=== PATIENT | male | born 1990 | race African-American/Black ===

== ENCOUNTER 2017-08-13 05:58 | Emergency (ER) | payer OTHER ==
[2017-08-13 06:00] VITALS: BP 132/78; PULSE 100; RESP 16; TEMP 99.4; O2SAT 95
--- NOTE | 2017-08-13 06:27 | PD ---
HPI Chief Complaint: Cold / Flu Symptoms Time Seen by Provider: 06:21 Travel History International Travel<30 days: No Contact w/Intl Traveler<30days: No Traveled to known affect area: No History of Present Illness HPI Patient is a 27-year-old male presents emergency department for evaluation of cough and congestion. He states she just not feeling right. Denies a history of immunocompromise denies any history of fever. Denies any productive cough. States his been feeling lousy for the past 3 days. Denies any sick contacts or foreign travel. States symptoms been rapidly worsening. [facility] Past Medical History Medical History: Denies Significant Hx ?: Not Past Surgical History Surgical History: No Previous Surgery Social History Alcohol Use: Yes Tobacco Use: Yes (BLACK AND MILD) Substance Use: No Allergies-Medications (Allergen,Severity, Reaction): Coded Allergies: No Known Allergies (Unverified , 08/13/17) Reported Meds & Prescriptions Reported Meds & Active Scripts Active Azithromycin 250 Mg Tab 250 Mg PO DAILY 5 Days Review of Systems Except as stated in HPI: all other systems reviewed are Neg Physical Exam Narrative GENERAL: Well-developed well-nourished, no obvious distress. SKIN: Focused skin assessment warm/dry. HEAD: Atraumatic. Normocephalic. EYES: Pupils equal and round. No scleral icterus. No injection or drainage. ENT: No nasal bleeding or discharge. Mucous membranes pink and moist. NECK: Trachea midline. No JVD. CARDIOVASCULAR: Regular rate and rhythm. No murmur appreciated. RESPIRATORY: No accessory muscle use. Slight wheeze on the right.. Equal air entry which is adequate bilaterally. GASTROINTESTINAL: Abdomen soft, non-tender, nondistended. Hepatic and splenic margins not palpable. MUSCULOSKELETAL: No obvious deformities. No clubbing. No cyanosis. No edema. NEUROLOGICAL: Awake and alert. No obvious cranial nerve deficits. Motor grossly within normal limits. Normal speech. PSYCHIATRIC: Appropriate mood and affect; insight and judgment normal. Data Data Last Documented VS Vital Signs Date Time Temp Pulse Resp B/P (MAP) Pulse Ox O2 Delivery O2 Flow Rate FiO2 08/13/17 08:51 93 16 112/68 (83) 99 Room Air 08/13/17 06:00 99.4 Orders Orders Chest, Pa & Lat (08/13/17 ) Benzonatate (Tessalon) (08/13/17 06:30) Complete Blood Count With Diff (08/13/17 07:15) Basic Metabolic Panel (Bmp) (08/13/17 07:15) Lactic Acid Sepsis Protocol (08/13/17 07:15) Blood Culture (08/13/17 07:15) Ceftriaxone Inj (Rocephin Inj) (08/13/17 07:15) Azithromycin (Zithromax) (08/13/17 07:15) Sodium Chlor 0.9% 1000 Ml Inj (Ns 1000 M (08/13/17 08:00) Labs Laboratory Tests Test 08/13/17 07:28 White Blood Count 22.6 TH/MM3 Red Blood Count 5.15 MIL/MM3 Hemoglobin 14.4 GM/DL Hematocrit 42.9 % Mean Corpuscular Volume 83.2 FL Mean Corpuscular Hemoglobin 27.9 PG Mean Corpuscular Hemoglobin Concent 33.5 % Red Cell Distribution Width 15.3 % Platelet Count 272 TH/MM3 Mean Platelet Volume 8.0 FL Neutrophils (%) (Auto) 76.2 % Lymphocytes (%) (Auto) 12.1 % Monocytes (%) (Auto) 10.4 % Eosinophils (%) (Auto) 1.0 % Basophils (%) (Auto) 0.3 % Neutrophils # (Auto) 17.2 TH/MM3 Lymphocytes # (Auto) 2.7 TH/MM3 Monocytes # (Auto) 2.3 TH/MM3 Eosinophils # (Auto) 0.2 TH/MM3 Basophils # (Auto) 0.1 TH/MM3 CBC Comment AUTO DIFF Differential Comment AUTO DIFF CONFIRMED Blood Urea Nitrogen 11 MG/DL Creatinine 1.02 MG/DL Random Glucose 108 MG/DL Calcium Level 9.1 MG/DL Sodium Level 136 MEQ/L Potassium Level 4.8 MEQ/L Chloride Level 103 MEQ/L Carbon Dioxide Level 26.6 MEQ/L Anion Gap 6 MEQ/L Estimat Glomerular Filtration Rate 105 ML/MIN Lactic Acid Level 1.5 mmol/L MDM Medical Decision Making Medical Screen Exam Complete: Yes Emergency Medical Condition: Yes Differential Diagnosis Pneumonia, flu, URI. Narrative Course Patient roomed emergency department, chest x-ray was obtained which does show developing pneumonia. The patient was discussed with Dr. Machuca and we have ordered basic labs to risk stratify him for inpatient versus outpatient therapy. She will follow-up the labs and disposition the patient properly. Diagnosis Primary Impression: Pneumonia Qualified Codes: J18.1 - Lobar pneumonia, unspecified organism Scripts Azithromycin (Azithromycin) 250 Mg Tab 250 MG PO DAILY for Infection for 5 Days, #5 TAB 0 Refills Prov: Wendy Machuca 08/13/17 Condition: Stable Brijesh Knight MD Aug 13, 2017 06:27
[2017-08-13] MEDS ORDERED: BENZONATATE 100 MG CAP PO ONE (06:30)
--- NOTE | 2017-08-13 06:57 | RADRPT ---
EXAM DATE/TIME: 08/13/2017 06:36 [place] COMPARISON: No previous studies available for comparison. INDICATIONS : Cough. MEDICAL HISTORY : None. SURGICAL HISTORY : None. ENCOUNTER: Initial ACUITY: 3 days PAIN SCORE: 7/10 LOCATION: Left upper chest FINDINGS: PA and lateral views of the chest demonstrate the lungs to be symmetrically aerated is opacification posteriorly in the right base concerning for an acute infiltrate. Left lung is clear. Heart size is n ormal. Mild dextroscoliosis of the dorsal spine. Osseous structures are otherwise intact CONCLUSION: Dense posterior right basilar infiltrate Poncho Johnson MD on August 13, 2017 at 6:48 Board Certified Radiologist. This report was verified electronically.
[2017-08-13] MEDS ORDERED: cefTRIAXone INJ 1,000 MG in SODIUM CHLORIDE 0.9% INJ 100 ML IV ONE (07:15)
[2017-08-13] MEDS ORDERED: AZITHROMYCIN 250 MG TAB PO ONE (07:15)
--- NOTE | 2017-08-13 07:22 | PD ---
Physical Exam Narrative Received sign out from previous team to follow up with labs and reevaluate. 27yo M with no significant PMH presents to the ED with c/o cough and nasal congestion. CXR showed right dense posterior infiltrate. Pt denies any sob or chest pain or fever. Pt given ceftriaxone and azithromycin to cover community acquired pneumonia. Denies any recent hospitalization or travel. Pt also given NS IVF. Pt is speaking in complete sentences without tachypnea. Labs reviewed, leukocytosis at 22.6. Lactic acid normal at 1.5. BMP unremarkable. Pt is well appearing and saturating at 100% on RA and HR is 89bpm. Will discharge with antibiotics and return precautions given. Data Data Last Documented VS Vital Signs Date Time Temp Pulse Resp B/P (MAP) Pulse Ox O2 Delivery O2 Flow Rate FiO2 08/13/17 08:51 93 16 112/68 (83) 99 Room Air 08/13/17 06:00 99.4 Orders Orders Chest, Pa & Lat (08/13/17 ) Benzonatate (Tessalon) (08/13/17 06:30) Complete Blood Count With Diff (08/13/17 07:15) Basic Metabolic Panel (Bmp) (08/13/17 07:15) Lactic Acid Sepsis Protocol (08/13/17 07:15) Blood Culture (08/13/17 07:15) Ceftriaxone Inj (Rocephin Inj) (08/13/17 07:15) Azithromycin (Zithromax) (08/13/17 07:15) Sodium Chlor 0.9% 1000 Ml Inj (Ns 1000 M (08/13/17 08:00) Labs Laboratory Tests Test 08/13/17 07:28 White Blood Count 22.6 TH/MM3 Red Blood Count 5.15 MIL/MM3 Hemoglobin 14.4 GM/DL Hematocrit 42.9 % Mean Corpuscular Volume 83.2 FL Mean Corpuscular Hemoglobin 27.9 PG Mean Corpuscular Hemoglobin Concent 33.5 % Red Cell Distribution Width 15.3 % Platelet Count 272 TH/MM3 Mean Platelet Volume 8.0 FL Neutrophils (%) (Auto) 76.2 % Lymphocytes (%) (Auto) 12.1 % Monocytes (%) (Auto) 10.4 % Eosinophils (%) (Auto) 1.0 % Basophils (%) (Auto) 0.3 % Neutrophils # (Auto) 17.2 TH/MM3 Lymphocytes # (Auto) 2.7 TH/MM3 Monocytes # (Auto) 2.3 TH/MM3 Eosinophils # (Auto) 0.2 TH/MM3 Basophils # (Auto) 0.1 TH/MM3 CBC Comment AUTO DIFF Differential Comment AUTO DIFF CONFIRMED Blood Urea Nitrogen 11 MG/DL Creatinine 1.02 MG/DL Random Glucose 108 MG/DL Calcium Level 9.1 MG/DL Sodium Level 136 MEQ/L Potassium Level 4.8 MEQ/L Chloride Level 103 MEQ/L Carbon Dioxide Level 26.6 MEQ/L Anion Gap 6 MEQ/L Estimat Glomerular Filtration Rate 105 ML/MIN Lactic Acid Level 1.5 mmol/L MDM Supervised Visit with KIRILL: No Diagnosis Primary Impression: Pneumonia Qualified Codes: J18.1 - Lobar pneumonia, unspecified organism Patient Instructions: General Instructions Departure Forms: Tests/Procedures Additional Instruction: You have already been given antibiotics today, please start taking the prescribed antibiotics tomorrow. Please follow up with [facility] in 2-3 days. Return to the ED if symptoms. Med/Other Pt SpecificInfo: Prescription(s) given Scripts Azithromycin (Azithromycin) 250 Mg Tab 250 MG PO DAILY for Infection for 5 Days, #5 TAB 0 Refills Prov: Wendy Machuca DO 08/13/17 Disposition: 01 DISCHARGE HOME Condition: Stable Wendy Machuca DO Aug 13, 2017 07:22
[2017-08-13 07:50] LABS: AUTOMATED NEUTROPHIL # 17.2 TH/MM3 (1.8-7.7); BASOPHIL # 0.1 TH/MM3 (0-0.2); BASOPHIL % 0.3 % (0.0-2.0); EOSINOPHIL # 0.2 TH/MM3 (0-0.4); HEMATOCRIT 42.9 % (39.0-51.0); LYMPH % 12.1 % (9.0-44.0); LYMPHOCYTE # 2.7 TH/MM3 (1.0-4.8); MEAN CELL VOLUME 83.2 FL (80.0-100.0); MEAN CORPUSCULAR HEMOGLOBIN 27.9 PG (27.0-34.0); MEAN CORPUSCULAR HGB CONC 33.5 % (32.0-36.0); MONO % 10.4 % (0.0-8.0); NEUT % 76.2 % (16.0-70.0); PLATELET COUNT 272 TH/MM3 (150-450); RED BLOOD COUNT 5.15 MIL/MM3 (4.50-5.90); RED CELL DISTRIBUTION WIDTH 15.3 % (11.6-17.2); WHITE BLOOD COUNT 22.6 TH/MM3 (4.0-11.0)
[2017-08-13 07:51] LABS: HEMO FLAGS AUTO DIFF
[2017-08-13] MEDS ORDERED: SODIUM CHLOR 0.9% 1000 ML INJ 1,000 ML IV ONE (08:00)
[2017-08-13 08:19] LABS: SCAN/DIFF AUTO DIFF CONFIRMED
[2017-08-13 08:20] LABS: BICARBONATE 26.6 MEQ/L (21.0-32.0); POTASSIUM 4.8 MEQ/L (3.5-5.1)
[2017-08-13 08:51] VITALS: BP 112/68; PULSE 93; RESP 16; O2SAT 99
[2017-08-13] MEDS ORDERED: AZIT250T3 PO (08:54)
== END 2017-08-13 09:54 | disposition home or self-care (01) ==
LOC: NEPE 05:58
DX: J18.9 Pneumonia, unspecified organism (principal); D72.829 Elevated white blood cell count, unspecified; Z72.0 Tobacco use
CPT/HCPCS: 71020; 80048; 83605; 85025; 87040; 96365; 99284; J0696; J7030

== ENCOUNTER 2018-10-05 15:32 | Observation (INO) ==
[2018-10-05 16:54] LABS: Bilirubin,Urine Negative (Negative); Calcium Oxalate Crystals,Urine Rare /hpf; Clarity,Urine Hazy (Clear); Color,Urine Yellow (Yellw/Straw); Glucose,Urine (UA) Negative (Negative); Leukocyte Esterase,Urine Moderate (Negative); Mucus,Urine Few /lpf (Occasional); Nitrite,Urine Negative (Negative); Specific Gravity,Urine 1.019 (1.002-1.035)
--- NOTE | 2018-10-05 17:07 | ED ---
HPI General Chief complaint: Urogenital-Male Stated complaint: Pain Time Seen by Provider: 10/05/18 16:17 Source: patient Mode of arrival: ambulatory Limitations: no limitations History of Present Illness HPI narrative: 88-year-old male presents the emergency room for evaluation of penile pain, swelling that started yesterday morning. Patient states he retracted his foreskin to urinate and it never went back. States it has progressively become more painful and swollen since then. He does have some penile discharge that is clear and/or yellow in color. States he had unprotected sex about 4 months ago. He denies testicular pain, abdominal pain, fever, chills, nausea, vomiting, urgency, or frequency. No flank pain. No chronic medical conditions or daily medications. Onset (ago): day(s) Location: genitals Radiation: non-radiation Severity: severe Quality: burning, aching and other (throbbing) Pain Consistency: constant Relieving factors: none Exacerbating factors: movement Treatments prior to arrival: Reports none Related Data Home Medications Medication Instructions Recorded Confirmed No Known Home Medications 10/05/18 10/05/18 Allergies Allergy/AdvReac Type Severity Reaction Status Date / Time shellfish derived Allergy Anaphylaxis Verified 10/05/18 16:48 Sulfa (Sulfonamide Allergy Swelling Verified 10/05/18 16:47 Antibiotics) Review of Systems ROS: all other systems reviewed are negative [facility] Medical History Medical History Patient denies medical problems (Acute) Surgical History Surgical History No history of previous surgery (Acute) Family History Family History Other Family history non-contributory Social History Social History Substance History: No History of Abuse Second Hand Smoke Exposure: Yes Smoking Status: Heavy tobacco smoker Tobacco Type: Cigarettes How Often Do You Have a Drink Containing Alcohol: 4 or more times a week Recent Travel in [facility] within the Last 8 Weeks: No Recent Out of Country Travel within the Last 8 Weeks: No Substance Abuse Detail Marijuana: Substance Use Status: Active Route Used Substance Abuse: Inhalation Reason for Use: Get High Immunization History Tetanus Immunization: Unsure Exam Narrative Exam Narrative: GENERAL: Well-nourished, well-developed in no acute distress. Afebrile. Ambulatory. SKIN: Focused skin assessment warm/dry. HEAD: Normocephalic. EYES: No scleral icterus. No injection or drainage. NECK: Supple, trachea midline. No JVD or lymphadenopathy. CARDIOVASCULAR: Regular rate and rhythm without murmurs, gallops, or rubs. RESPIRATORY: Breath sounds equal bilaterally. No accessory muscle use. GASTROINTESTINAL: Abdomen soft, non-tender, nondistended. GENITOURINARY: Uncircumcised. No lesions. There is moderate thick, yellow drainage around the glans penis. The glans penis is protruding and extremely swollen outside of the foreskin. It is extremely tender to palpation. There is well-perfused and pink. Non-dusky appearing. Procedures Procedural Sedation Presedation Evaluation: Paraphimosis ASA Class: ASA 1 Normal Healthy Patient Preparation: dietary clerk applied, pulse oximeter, suction/airway equipment at bedside and IV secured IV Propofol Dose (mgs): 80 Course Initial Documented Vital Signs Temperature 98.3 F 10/05/18 15:40 Pulse Rate 92 H 10/05/18 15:40 Respiratory Rate 18 10/05/18 15:40 Blood Pressure 140/93 H 10/05/18 15:40 Pulse Oximetry 100 10/05/18 15:40 Last Documented Vital Signs Temperature 98.2 F 10/06/18 13:55 Pulse Rate 66 10/06/18 13:55 Respiratory Rate 17 10/06/18 13:55 Blood Pressure 121/76 10/06/18 13:55 Pulse Oximetry 99 10/06/18 13:55 Sign Out Sign Out Data: Patient Sign Out occurred on 10/05/18 at 18:03. Patient's care was discussed, and care was transferred from Brijesh Knight MD to Wendy Machuca DO. Sign Out Comment: . Last updated by Brijesh Knight MD at 10/05/18 17:43 Post-Handoff Eval: Received sign out at 5pm that pt will require procedural sedation and an attempt to retract the foreskin. Pt said he retracted his foreskin yesterday morning to urinate and has not been able to pull the foreskin back. He has no PMH. Pt is able to urinate normally. Consent was obtained and pt was placed on dietary clerk and 80mg of propofol was used for sedation. The glans are very edematous and I was not able to retract the foreskin. Glans penis are pink in color. I discussed with urologist engagement quality consultant Dr. Gaona so recommended NPO after midnight and he will take patient to the OR tomorrow. Pt given morphine for pain. Labs reviewed, WBC 11.5. H/H 12.3/36.8. CMP unremarkable. UA showed WBC 121. Pt is having yellow and clear penile discharge. Will cover for STI. Pt given ceftriaxone 1gm with lidocaine IM and azithromycin. Discussed with Dr. Robins and accepted to his service. Medical Decision Making KIRILL Attestation KIRILL supervised visit: Yes Attestation: I, Dr. Knight, have reviewed the advance practice practitioner's documentation and am in agreement, met with the patient face to face, made the diagnosis, and the medical decision making was done by me. *My assessment and Findings: Patient seen and examined by me in addition to Orin Humphries PA-C, this 28-year-old male presented by EMS for evaluation of dysuria. On examination by Orin patient was found to have paraphimosis, she approached me and I examined the patient and indeed he does have paraphimosis, fairly tender in the patient will not allow for examination, also not allow for penile block. The glans is pink and has signs of adequate perfusion and I do not think there is any ischemia to the glands currently. I think the only safe way to proceed is with conscious sedation which may not be effective and the patient may need dorsal slit procedure neurology may need to. This the patient was discussed with Dr. Orin Machuca at 1700 shift change and will assume care for the patient. MDM Narrative Medical decision making narrative: 28-year-old male presents the emergency room for evaluation of painful penis that started yesterday morning. Patient states he pulled his foreskin back to urinate and it never retracted. States symptoms have been progressively worsening. Since then he has had increasing swelling, tenderness to the glans penis, and pain with urination. On exam, patient has significant edema to the glans penis resulting in a paraphimosis. There is some purulent yellow drainage. It is extremely tender to palpation. It appears well perfused. I immediately contacted my attending physician who came over and saw the patient right away. Decision was made to administer conscious sedation for attempted reduction. The reduction was not successful. Dr. Machuca called the urologist engagement quality consultant who recommends patient be admitted for surgical correction tomorrow. Patient will be nothing by mouth after midnight. Dr. Machuca spoke to Dr. Robins who agrees to admission. Patient understands and agrees to plan. Medical Screen Exam Complete: Yes Emergency Medical Condition: Yes Differential Diagnosis Differential Diagnosis: Paraphimosis, phimosis, STD, UTI Lab Data Result diagrams: 10/05/18 17:28 10/05/18 17:28 Lab Results 10/05/18 10/05/18 10/05/18 Range/Units 16:21 16:21 16:21 WBC (4.0-11.0) th/mm3 RBC (4.50-5.90) mil/mm3 Hgb (13.0-17.0) gm/dL Hct (39.0-51.0) % MCV (80.0-100.0) fL MCH (27.0-34.0) pg MCHC (32.0-36.0) % RDW (11.6-17.2) % Plt Count (150-450) th/mm3 MPV (7.0-11.0) fL Prelim Diff (Auto) Neut % (Auto) (16.0-70.0) % Lymph % (Auto) (9.0-44.0) % Bullock % (Auto) (0.0-8.0) % Eos % (Auto) (0.0-4.0) % Baso % (Auto) (0.0-2.0) % Neut # (Auto) (1.8-7.7) th/mm3 Lymph # (Auto) (1.0-4.8) th/mm3 Bullock # (Auto) (0.0-0.9) th/mm3 Eos # (Auto) (0.0-0.4) th/mm3 Baso # (Auto) (0.0-0.2) th/mm3 WBC Differential Diff Scan Differential Comment PT (9.8-11.6) sec INR Ratio APTT (23.4-31.7) sec Sodium (136-145) meq/L Potassium (3.5-5.1) meq/L Chloride (98-107) meq/L Carbon Dioxide (21.0-32.0) meq/L Anion Gap (5-15) meq/L BUN (7-18) mg/dL Creatinine (0.60-1.30) mg/dL Estimated GFR (>89) mL/min Random Glucose (74-106) mg/dL Calcium (8.5-10.1) mg/dL Total Bilirubin (0.2-1.0) mg/dL AST (15-37) U/L ALT (12-78) U/L Alkaline Phosphatase (45-117) U/L Total Protein (6.4-8.2) g/dL Albumin (3.4-5.0) g/dL Urine Color Yellow (Yellw/Straw) Urine Clarity Hazy H (Clear) Urine pH 6.0 (5.0-8.5) Ur Specific Foss 1.019 (1.002-1.035) Urine Protein Negative (Neg-Trace) mg/dL Urine Glucose (UA) Negative (Negative) mg/dL Urine Ketones Negative (Negative) mg/dL Urine Occult Blood Negative (Negative) Urine Nitrate Negative (Negative) Urine Bilirubin Negative (Negative) Urine Urobilinogen 2.0 H (Less than 2) mg/dL Ur Leukocyte Esterase Moderate H (Negative) Urine RBC 1 (0-3) /hpf Urine WBC 121 H (0-5) /hpf Calcium Oxalate Crystal Rare H (None) /hpf Urine Mucus Few H (Occasional) /lpf Micro UA Comment Culture indicated Ur Microscopic Review Not Reportable Urine Culture Comments Culture indicated Urine Opiates Screen Neg (Neg) Ur Barbiturates Screen Neg (Neg) Ur Amphetamines Screen Neg (Neg) U Benzodiazepines Scrn Neg (Neg) Urine Cocaine Screen Neg (Neg) U Cannabinoids Screen Pos H (Neg) Chlam trachomat DNA PCR Not detected (Not Detect) N.gonorrhoeae DNA (PCR) Detected A (Not Detect) 10/05/18 10/05/18 10/05/18 Range/Units 17:28 17:28 17:28 WBC 11.5 H (4.0-11.0) th/mm3 RBC 4.32 L (4.50-5.90) mil/mm3 Hgb 12.3 L (13.0-17.0) gm/dL Hct 36.8 L (39.0-51.0) % MCV 85.3 (80.0-100.0) fL MCH 28.4 (27.0-34.0) pg MCHC 33.3 (32.0-36.0) % RDW 14.7 (11.6-17.2) % Plt Count 367 (150-450) th/mm3 MPV 7.0 (7.0-11.0) fL Prelim Diff (Auto) Slide review pending Neut % (Auto) 75.9 H (16.0-70.0) % Lymph % (Auto) 13.1 (9.0-44.0) % Bullock % (Auto) 8.7 H (0.0-8.0) % Eos % (Auto) 0.9 (0.0-4.0) % Baso % (Auto) 1.4 (0.0-2.0) % Neut # (Auto) 8.7 H (1.8-7.7) th/mm3 Lymph # (Auto) 1.5 (1.0-4.8) th/mm3 Bullock # (Auto) 1.0 H (0.0-0.9) th/mm3 Eos # (Auto) 0.1 (0.0-0.4) th/mm3 Baso # (Auto) 0.2 (0.0-0.2) th/mm3 WBC Differential . Diff Scan Auto diff confirmed Differential Comment . PT 10.5 (9.8-11.6) sec INR 1.0 Ratio APTT 35.3 H (23.4-31.7) sec Sodium 139 (136-145) meq/L Potassium 3.8 (3.5-5.1) meq/L Chloride 103 (98-107) meq/L Carbon Dioxide 28.8 (21.0-32.0) meq/L Anion Gap 7 (5-15) meq/L BUN 7 (7-18) mg/dL Creatinine 0.91 (0.60-1.30) mg/dL Estimated GFR Greater than 89 (>89) mL/min Random Glucose 80 (74-106) mg/dL Calcium 8.7 (8.5-10.1) mg/dL Total Bilirubin 0.4 (0.2-1.0) mg/dL AST 12 L (15-37) U/L ALT 17 (12-78) U/L Alkaline Phosphatase 141 H (45-117) U/L Total Protein 8.3 H (6.4-8.2) g/dL Albumin 3.7 (3.4-5.0) g/dL Urine Color (Yellw/Straw) Urine Clarity (Clear) Urine pH (5.0-8.5) Ur Specific Foss (1.002-1.035) Urine Protein (Neg-Trace) mg/dL Urine Glucose (UA) (Negative) mg/dL Urine Ketones (Negative) mg/dL Urine Occult Blood (Negative) Urine Nitrate (Negative) Urine Bilirubin (Negative) Urine Urobilinogen (Less than 2) mg/dL Ur Leukocyte Esterase (Negative) Urine RBC (0-3) /hpf Urine WBC (0-5) /hpf Calcium Oxalate Crystal (None) /hpf Urine Mucus (Occasional) /lpf Micro UA Comment Ur Microscopic Review Urine Culture Comments Urine Opiates Screen (Neg) Ur Barbiturates Screen (Neg) Ur Amphetamines Screen (Neg) U Benzodiazepines Scrn (Neg) Urine Cocaine Screen (Neg) U Cannabinoids Screen (Neg) Chlam trachomat DNA PCR (Not Detect) N.gonorrhoeae DNA (PCR) (Not Detect) Discharge Plan Discharge Disposition Patient Disposition: 30 Still Patient Discharge Condition Condition: Good Discharge Order Discharge Orders: Discharge Order (Routine); Ordered 10/06/18 Ordered By: Renetta Bui Discharge Details Discharge Comment: OK to discharge from PACU Diagnosis: Paraphimosis Physicians Team ED Provider: Wendy Machuca ED Midlevel Provider: Orin Humphries Primary Care Provider: Primary Care Rachel Pal Attending Provider: Yousuf Diaz Other Providers: Wade Gaona Status ED Status: Left Department Discharge Information Discharge Date/Time: 10/05/18 20:24
[2018-10-05] MEDS ORDERED: Morphine Inj 4 MG/ML Vial IV.PUSH ONE (17:29)
[2018-10-05 17:44] LABS: Baso # (Auto) 0.2 th/mm3 (0.0-0.2); Baso % (Auto) 1.4 % (0.0-2.0); Eos # (Auto) 0.1 th/mm3 (0.0-0.4); Eos % (Auto) 0.9 % (0.0-4.0); Hematocrit 36.8 % (39.0-51.0); Hemoglobin 12.3 gm/dL (13.0-17.0); Lymph # (Auto) 1.5 th/mm3 (1.0-4.8); Lymph % (Auto) 13.1 % (9.0-44.0); Mean Corpuscular HGB Conc 33.3 % (32.0-36.0); Mean Corpuscular Hemoglobin 28.4 pg (27.0-34.0); Mean Corpuscular Volume 85.3 fL (80.0-100.0); Mono % (Auto) 8.7 % (0.0-8.0); Neut # (Auto) 8.7 th/mm3 (1.8-7.7); Neut % (Auto) 75.9 % (16.0-70.0); Platelet Count 367 th/mm3 (150-450); Red Blood Count 4.32 mil/mm3 (4.50-5.90); Red Cell Distribution Width 14.7 % (11.6-17.2); White Blood Count 11.5 th/mm3 (4.0-11.0)
[2018-10-05 17:54] LABS: Activated Partial Thrombo Time 35.3 sec (23.4-31.7); Prothrombin Time 10.5 sec (9.8-11.6)
[2018-10-05 18:04] LABS: Albumin 3.7 g/dL (3.4-5.0); Anion Gap 7 meq/L (5-15); Aspartate Aminotransferase 12 U/L (15-37); Blood Urea Nitrogen 7 mg/dL (7-18); Calcium 8.7 mg/dL (8.5-10.1); Carbon Dioxide 28.8 meq/L (21.0-32.0); Chloride 103 meq/L (98-107); Glomerular Filtration Rate Greater Than 89 mL/min (>89); Glucose,Random 80 mg/dL (74-106); Potassium 3.8 meq/L (3.5-5.1); Sodium 139 meq/L (136-145)
[2018-10-05 18:09] LABS: Alanine Aminotransferase 17 U/L (12-78); Alkaline Phosphatase 141 U/L (45-117); Total Protein 8.3 g/dL (6.4-8.2)
[2018-10-05] MEDS ORDERED: cefTRIAXone Inj 1,000 MG Vial IM ONE (18:49)
[2018-10-05] MEDS ORDERED: Lidocaine PF 1% Inj 30 ML Vial IM ONE (18:49)
[2018-10-05] MEDS ORDERED: Azithromycin 250 MG Tablet PO ONE (18:49)
[2018-10-05] MEDS ORDERED: Bisacodyl 10 MG Supp RECTAL PRN (18:52)
[2018-10-05] MEDS ORDERED: Naloxone Inj 0.4 MG/ML Vial IV.PUSH PRN (18:53)
[2018-10-05] MEDS ORDERED: Acetaminophen 325 MG Tablet PO PRN (18:53)
[2018-10-05] MEDS ORDERED: Sodium Chloride 0.9% 2 ML Flush PRN IV.FLUSH (20:20)
--- NOTE | 2018-10-05 22:58 | P.HPIM ---
History of Present Illness Service: [facility] Primary Care Physician: No Primary Care Physician Chief Complaint: penile pain History of Present Illness: 28 y/o male with no medical history presented to the ed for evaluation of penile pain and swelling that began yesterday. Patient states he retracted his foreskin to urinate and it never went back. He states over the last day it began to get more painful and swollen. He states the pain is throbbing, 6/10, no radiation, worse with touch and associated clear/yellow drainage noted. Patient states he had unprotected sex 4 months ago. He denies any dysuria, fever, chills, abdominal pain, urinary frequency, chest pain or sob. Review of Systems ROS: all other systems reviewed are negative [facility] Medical History Medical History Patient denies medical problems (Acute) Surgical History Surgical History No history of previous surgery (Acute) Family History Family History Other Family history non-contributory Social History Social History Substance History: No History of Abuse Second Hand Smoke Exposure: Yes Smoking Status: Heavy tobacco smoker Tobacco Type: Cigarettes How Often Do You Have a Drink Containing Alcohol: 4 or more times a week Recent Travel in [facility] within the Last 8 Weeks: No Recent Out of Country Travel within the Last 8 Weeks: No Substance Abuse Detail Marijuana: Substance Use Status: Active Route Used Substance Abuse: Inhalation Reason for Use: Get High Immunization History Tetanus Immunization: Unsure Medications and Allergies Allergies Allergy/AdvReac Type Severity Reaction Status Date / Time shellfish derived Allergy Anaphylaxis Verified 10/05/18 16:48 Sulfa (Sulfonamide Allergy Swelling Verified 10/05/18 16:47 Antibiotics) Home Medications Medication Instructions Recorded Confirmed Type No Known Home Medications 10/05/18 10/05/18 History Active Medications: Active Medications Acetaminophen (Tylenol) 650 mg PO Q6HR PRN PRN Reason: PAIN SCALE 1 TO 2 Hydrocodone Bitart/Acetaminophen ([place] 7.5/325) 1 tab PO Q4H PRN PRN Reason: PAIN SCALE 6 TO 10 Last Admin: 10/05/18 21:40 Dose: 1 tab Hydrocodone Bitart/Acetaminophen ([place] 5/325) 1 tab PO Q4H PRN PRN Reason: PAIN SCALE 3 TO 5 Al Hydroxide/Mg Hydroxide (Milk Of Magnesia Liq) 30 ml PO Q12H PRN PRN Reason: Mild Constipation Bisacodyl (Dulcolax Supp) 10 mg RECTAL DAILY PRN PRN Reason: SEVERE CONSITIPATION Ceftriaxone Sodium 1,000 mg/ (Sodium Chloride) 100 mls @ 200 mls/hr IV.SIG Q24H BRODY Lactulose (Lactulose Liq) 30 ml PO DAILY PRN PRN Reason: SEVERE CONSITIPATION Naloxone HCl (Narcan Inj) 0.4 mg IV.PUSH UNSCH PRN PRN Reason: SEE LABEL COMMENTS Senna/Docusate Sodium (Erica-Colace) 1 tab PO BID BRODY Sennosides (Senokot) 17.2 mg PO Q12H PRN PRN Reason: Moderate Constipation Sodium Chloride (Ns Flush) 2 ml IV.FLUSH BID BRODY Sodium Chloride (Ns Flush) 2 ml IV.FLUSH PRN PRN PRN Reason: FLUSH AFTER USING IV ACCESS Physical Exam Vital signs: Last Vital Signs Temp 98.3 F 10/05/18 15:40 Pulse 83 10/05/18 19:15 Resp 16 10/05/18 19:15 BP 134/68 10/05/18 19:15 Pulse Ox 99 10/05/18 19:15 Intake & Output 10/03/18 10/04/18 10/05/18 10/06/18 06:59 06:59 06:59 06:59 Intake Total 100 / 100 Balance 100 / 100 Weight 70.307 kg Narrative: GENERAL: Well nourished patient laying in bed, no distress SKIN: Warm and dry. HEAD: Normocephalic. CARDIOVASCULAR: Regular rate and rhythm without murmurs, gallops, or rubs. RESPIRATORY: Breath sounds equal bilaterally. No accessory muscle use. GASTROINTESTINAL: Abdomen soft, non-tender, nondistended. MUSCULOSKELETAL: No cyanosis, or edema. : Penis is swollen, foreskin is contracted, unable to retract forward, tender , no drainage Assessment and Plan Plan 28 y/o male with no medical history presented to the ed for evaluation of penile pain and swelling that began yesterday. Paraphimosis, acute -Consult to urology for evaluation -Pain management with IV morphine and PO [place] -NPO Gonorrhea, acute -Patient treated in ED with Azithromycin and Rocephin -Discussed with patient importance of letting former partner know -Will need follow up testing outpatient DVT prophylaxis: SCDs
[2018-10-06] MEDS: Senna/Docusate Sodium 8.6/50 MG Tablet PO SCH ×3 (00:18→10:14)
[2018-10-06] MEDS: Sodium Chloride 0.9% 2 ML Flush BID IV.FLUSH SCH ×2 (00:19→10:14)
[2018-10-06 00:37] LABS: Amphetamine Screen,Urine Neg (Neg); Barbiturate Screen,Urine Neg (Neg); Cannabinoid Screen,Urine Pos (Neg); Cocaine Screen,Urine Neg (Neg)
[2018-10-06 00:39] LABS: Opiate Screen,Urine Neg (Neg)
[2018-10-06] MEDS ORDERED: Morphine Inj 4 MG/ML Vial IV.PUSH ONE ×2 (01:28→05:52)
--- NOTE | 2018-10-06 07:35 | P.CONURO ---
History of Present Illness Service: Consult date: 10/06/18 Requesting Physician: Shashank Zuñiga Reason for Consult: Paraphimosis Primary Care Provider: No Primary Care Physician Chief Complaint: penile pain History of Present Illness: 28-year-old gentleman who presented to the emergency room late yesterday with complaints of penile swelling. Apparently the patient retracted his foreskin the day prior and left it in the retracted state. He was unable to miniplate the foreskin back in normal position and thus presented to the emergency room. Attempts were made by the emergency room physician to reduce the paraphimosis without success and thus a urology consult was placed. Review of Systems All other systems reviewed negative except as stated in [facility] - History History Provided By: Patient - Medical History Medical History: Medical History (Last Reviewed 10/05/18 @ 23:33 by NORY Shirley) Patient denies medical problems - Surgical History Surgical History: Surgical History (Last Reviewed 10/05/18 @ 23:33 by NORY Shirley) No history of previous surgery - Family History Family History: Family History (Last Reviewed 10/06/18 @ 03:57 by NORY Shirley) Other Family history non-contributory - Tobacco History Second Hand Smoke Exposure: Yes Tobacco Use In Past 30 Days: Yes Smoking Status: Heavy tobacco smoker Tobacco Type: Cigarettes - Alcohol History How Often Do You Have a Drink Containing Alcohol: 4 or more times a week - Substance Use History Substance History: No History of Abuse - Substance Use Type Marijuana Status: Active Route Used: Inhalation Reason for Use: Get High - Travel History Recent Travel in the [place] Within the Last 8 Weeks: No Recent Travel Out of the Country Within the Last 8 Weeks: No - Immunization History Tetanus Immunization: Unsure Medications and Allergies Active Medications: Active Medications Acetaminophen (Tylenol) 650 mg PO Q6HR PRN PRN Reason: PAIN SCALE 1 TO 2 Hydrocodone Bitart/Acetaminophen ([place] 7.5/325) 1 tab PO Q4H PRN PRN Reason: PAIN SCALE 6 TO 10 Last Admin: 10/06/18 05:28 Dose: 1 tab Hydrocodone Bitart/Acetaminophen ([place] 5/325) 1 tab PO Q4H PRN PRN Reason: PAIN SCALE 3 TO 5 Al Hydroxide/Mg Hydroxide (Milk Of Magnesia Liq) 30 ml PO Q12H PRN PRN Reason: Mild Constipation Bisacodyl (Dulcolax Supp) 10 mg RECTAL DAILY PRN PRN Reason: SEVERE CONSITIPATION Ceftriaxone Sodium 1,000 mg/ (Sodium Chloride) 100 mls @ 200 mls/hr IV.SIG Q24H [facility] Lactulose (Lactulose Liq) 30 ml PO DAILY PRN PRN Reason: SEVERE CONSITIPATION Naloxone HCl (Narcan Inj) 0.4 mg IV.PUSH UNSCH PRN PRN Reason: SEE LABEL COMMENTS Senna/Docusate Sodium (Erica-Colace) 1 tab PO BID [facility] Last Admin: 10/06/18 00:20 Dose: Not Given Sennosides (Senokot) 17.2 mg PO Q12H PRN PRN Reason: Moderate Constipation Sodium Chloride (Ns Flush) 2 ml IV.FLUSH BID [facility] Last Admin: 10/06/18 00:19 Dose: 2 ml Sodium Chloride (Ns Flush) 2 ml IV.FLUSH PRN PRN PRN Reason: FLUSH AFTER USING IV ACCESS Allergies Allergy/AdvReac Type Severity Reaction Status Date / Time shellfish derived Allergy Anaphylaxis Verified 10/05/18 16:48 Sulfa (Sulfonamide Allergy Swelling Verified 10/05/18 16:47 Antibiotics) Home Medications Medication Instructions Recorded Confirmed Type No Known Home Medications 10/05/18 10/05/18 History Physical Exam Vital Signs - 24 hr 10/05/18 15:40 10/05/18 17:54 10/05/18 19:15 Temperature 98.3 F Pulse Rate 92 H 83 Respiratory Rate 18 20 16 Blood Pressure 140/93 H 134/68 Pulse Oximetry 100 99 10/06/18 04:00 Temperature 99.7 F H Pulse Rate 81 Respiratory Rate 18 Blood Pressure 122/73 Pulse Oximetry 97 Physical Exam: GENERAL: This is a well-nourished, well-developed patient, in no apparent distress. SKIN: No rashes, ecchymoses or lesions. Cool and dry. HEAD: Atraumatic. Normocephalic. No temporal or scalp tenderness. EYES: Pupils equal round and reactive. Extraocular motions intact. No scleral icterus. No injection or drainage. ENT: Nose without bleeding, purulent drainage or septal hematoma. Throat without erythema, tonsillar hypertrophy or exudate. Uvula midline. Airway patent. NECK: Trachea midline. No JVD or lymphadenopathy. Supple, nontender, no meningeal signs. CARDIOVASCULAR: Regular rate and rhythm without murmurs, gallops, or rubs. RESPIRATORY: Clear to auscultation. Breath sounds equal bilaterally. No wheezes , rales, or rhonchi. GASTROINTESTINAL: Abdomen soft, non-tender, nondistended. No hepato-splenomegaly , or palpable masses. No guarding. GENITOURINARY: Paraphimosis noted, glans well-perfused MUSCULOSKELETAL: Extremities without clubbing, cyanosis, or edema. No joint tenderness, effusion, or edema noted. No calf tenderness. Negative Homans sign bilaterally. NEUROLOGICAL: Awake and alert. Cranial nerves II through XII intact. Motor and sensory grossly within normal limits. Five out of 5 muscle strength in all muscle groups. Normal speech. Laboratory Results - last 24 hr 10/05/18 10/05/18 10/05/18 16:21 16:21 16:21 WBC RBC Hgb Hct MCV MCH MCHC RDW Plt Count MPV Prelim Diff (Auto) Neut % (Auto) Lymph % (Auto) [place] % (Auto) Eos % (Auto) Baso % (Auto) Neut # (Auto) Lymph # (Auto) [place] # (Auto) Eos # (Auto) Baso # (Auto) WBC Differential Diff Scan Differential Comment PT INR APTT Sodium Potassium Chloride Carbon Dioxide Anion Gap BUN Creatinine Estimated GFR Random Glucose Calcium Total Bilirubin AST ALT Alkaline Phosphatase Total Protein Albumin Urine Color Yellow Urine Clarity Hazy H Urine pH 6.0 Ur Specific [place] 1.019 Urine Protein Negative Urine Glucose (UA) Negative Urine Ketones Negative Urine Occult Blood Negative Urine Nitrate Negative Urine Bilirubin Negative Urine Urobilinogen 2.0 H Ur Leukocyte Esterase Moderate H Urine RBC 1 Urine WBC 121 H Calcium Oxalate Crystal Rare H Urine Mucus Few H Micro UA Comment Culture indicated Ur Microscopic Review Not Reportable Urine Culture Comments Culture indicated Urine Opiates Screen Neg Ur Barbiturates Screen Neg Ur Amphetamines Screen Neg U Benzodiazepines Scrn Neg Urine Cocaine Screen Neg U Cannabinoids Screen Pos H Chlam trachomat DNA PCR Not detected N.gonorrhoeae DNA (PCR) Detected A 10/05/18 10/05/18 10/05/18 17:28 17:28 17:28 WBC 11.5 H RBC 4.32 L Hgb 12.3 L Hct 36.8 L MCV 85.3 MCH 28.4 MCHC 33.3 RDW 14.7 Plt Count 367 MPV 7.0 Prelim Diff (Auto) Slide review pending Neut % (Auto) 75.9 H Lymph % (Auto) 13.1 [place] % (Auto) 8.7 H Eos % (Auto) 0.9 Baso % (Auto) 1.4 Neut # (Auto) 8.7 H Lymph # (Auto) 1.5 [place] # (Auto) 1.0 H Eos # (Auto) 0.1 Baso # (Auto) 0.2 WBC Differential . Diff Scan Auto diff confirmed Differential Comment . PT 10.5 INR 1.0 APTT 35.3 H Sodium 139 Potassium 3.8 Chloride 103 Carbon Dioxide 28.8 Anion Gap 7 BUN 7 Creatinine 0.91 Estimated GFR Greater than 89 Random Glucose 80 Calcium 8.7 Total Bilirubin 0.4 AST 12 L ALT 17 Alkaline Phosphatase 141 H Total Protein 8.3 H Albumin 3.7 Urine Color Urine Clarity Urine pH Ur Specific [place] Urine Protein Urine Glucose (UA) Urine Ketones Urine Occult Blood Urine Nitrate Urine Bilirubin Urine Urobilinogen Ur Leukocyte Esterase Urine RBC Urine WBC Calcium Oxalate Crystal Urine Mucus Micro UA Comment Ur Microscopic Review Urine Culture Comments Urine Opiates Screen Ur Barbiturates Screen Ur Amphetamines Screen U Benzodiazepines Scrn Urine Cocaine Screen U Cannabinoids Screen Chlam trachomat DNA PCR N.gonorrhoeae DNA (PCR) Result Diagrams: 10/05/18 17:28 10/05/18 17:28 Assessment and Plan - Assessment (1) Paraphimosis Code(s): N47.2 - Paraphimosis Status: Acute - Plan Urologic impression: Paraphimosis Plan: 1. Keep the patient n.p.o. 2. Bring the patient to the operating room suite this morning for reduction of paraphimosis.
[2018-10-06] MEDS ORDERED: Bupivacaine/Epinephrine PF Inj 0.5% 30 ML Vial ONE (10:44)
[2018-10-06] MEDS ORDERED: Metoprolol Tartrate 25 MG Tablet PO ONE (10:48)
[2018-10-06] MEDS ORDERED: Chlorhexidine Gluconate 2% 1 Pack (2 Cloths) TOPICAL ONE (10:48)
[2018-10-06] MEDS ORDERED: Sodium Chlor 0.9% Inj 500 ML IV.SIG ONE (11:00)
[2018-10-06] MEDS ORDERED: Lidocaine PF 1% Inj 5 ML Syringe INFILTRATN ONE (11:07)
--- NOTE | 2018-10-06 11:46 | P.OP ---
- Preoperative Diagnosis (1) Paraphimosis - Postoperative Diagnosis (1) Paraphimosis Date of procedure: 10/06/18 Procedure: Reduction of paraphimosis Anesthesia: GETA Surgeon: Wade Gaona MD Estimated blood loss (mL): 0 Pathology: none sent Operation and Findings: Indication for procedure: 28-year-old gentleman who presented to the emergency room with paraphimosis and presents now for manual reduction under anesthesia. Operative procedure in detail: Patient was brought to the operating suite and placed supine on the OR table. He was then placed under general anesthesia. He was then prepped and draped in normal sterile fashion. After an appropriate timeout was undertaken I proceeded to manually compress the edematous foreskin for approximately 60 seconds. I was then able to manually reduce the paraphimosis without difficulty. Antibiotic ointment was applied to the foreskin and distal glands. The patient was transferred to the PACU in satisfactory condition having tolerated the procedure well.
[2018-10-06] MEDS ORDERED: Flumazenil Inj 1 MG/10 ML Vial ONE (11:51)
[2018-10-06] MEDS ORDERED: fentaNYL Citrate Inj 100 MCG/2 ML Ampul ONE (12:04)
--- NOTE | 2018-10-06 12:43 | P.PN ---
Subjective Interval history: Patient is seen lying in bed. Continues to have penile pain but it is no worse than before. No nausea vomiting or diarrhea. No chief or chills. Awaiting intervention by urology. Physical Exam Vital signs: Vital Signs 10/05/18 15:40 10/05/18 17:54 10/05/18 19:15 Temperature 98.3 F Pulse Rate 92 H 83 Respiratory Rate 18 20 16 Blood Pressure 140/93 H 134/68 Pulse Oximetry 100 99 10/06/18 04:00 10/06/18 08:00 10/06/18 12:00 Temperature 99.7 F H 98.3 F 97.6 F Pulse Rate 81 59 L 73 Respiratory Rate 18 16 20 Blood Pressure 122/73 103/69 125/79 Pulse Oximetry 97 98 96 10/06/18 12:15 Temperature Pulse Rate 64 Respiratory Rate 18 Blood Pressure 135/89 Pulse Oximetry 100 Intake & Output 10/05/18 10/06/18 10/06/18 18:59 06:59 18:59 Intake Total 100 / 100 Balance 100 / 100 Weight 70.307 kg 70.307 kg Intake: IV 100 / 100 Rocephin Inj 1,000 MG In NS Inj 100 / 100 100 ML @ 200 mls/hr IV.SIG ONCE ONE Rx#:[id number] Other: # Voids 1 Date of Last Bowel Movement 10/05/18 Weight On Admission 70.307 kg Narrative: GENERAL: Well nourished patient laying in bed, no distress SKIN: Warm and dry. HEAD: Normocephalic. CARDIOVASCULAR: Regular rate and rhythm without murmurs, gallops, or rubs. RESPIRATORY: Breath sounds equal bilaterally. No accessory muscle use. GASTROINTESTINAL: Abdomen soft, non-tender, nondistended. MUSCULOSKELETAL: No cyanosis, or edema. Results - Labs CBC & Chem 7: 10/05/18 17:28 10/05/18 17:28 Laboratory Results - last 24 hr 10/05/18 10/05/18 10/05/18 16:21 16:21 16:21 WBC RBC Hgb Hct MCV MCH MCHC RDW Plt Count MPV Prelim Diff (Auto) Neut % (Auto) Lymph % (Auto) [place] % (Auto) Eos % (Auto) Baso % (Auto) Neut # (Auto) Lymph # (Auto) [place] # (Auto) Eos # (Auto) Baso # (Auto) WBC Differential Diff Scan Differential Comment PT INR APTT Sodium Potassium Chloride Carbon Dioxide Anion Gap BUN Creatinine Estimated GFR Random Glucose Calcium Total Bilirubin AST ALT Alkaline Phosphatase Total Protein Albumin Urine Color Yellow Urine Clarity Hazy H Urine pH 6.0 Ur Specific [place] 1.019 Urine Protein Negative Urine Glucose (UA) Negative Urine Ketones Negative Urine Occult Blood Negative Urine Nitrate Negative Urine Bilirubin Negative Urine Urobilinogen 2.0 H Ur Leukocyte Esterase Moderate H Urine RBC 1 Urine WBC 121 H Calcium Oxalate Crystal Rare H Urine Mucus Few H Micro UA Comment Culture indicated Ur Microscopic Review Not Reportable Urine Culture Comments Culture indicated Urine Opiates Screen Neg Ur Barbiturates Screen Neg Ur Amphetamines Screen Neg U Benzodiazepines Scrn Neg Urine Cocaine Screen Neg U Cannabinoids Screen Pos H Chlam trachomat DNA PCR Not detected N.gonorrhoeae DNA (PCR) Detected A 10/05/18 10/05/18 10/05/18 17:28 17:28 17:28 WBC 11.5 H RBC 4.32 L Hgb 12.3 L Hct 36.8 L MCV 85.3 MCH 28.4 MCHC 33.3 RDW 14.7 Plt Count 367 MPV 7.0 Prelim Diff (Auto) Slide review pending Neut % (Auto) 75.9 H Lymph % (Auto) 13.1 [place] % (Auto) 8.7 H Eos % (Auto) 0.9 Baso % (Auto) 1.4 Neut # (Auto) 8.7 H Lymph # (Auto) 1.5 [place] # (Auto) 1.0 H Eos # (Auto) 0.1 Baso # (Auto) 0.2 WBC Differential . Diff Scan Auto diff confirmed Differential Comment . PT 10.5 INR 1.0 APTT 35.3 H Sodium 139 Potassium 3.8 Chloride 103 Carbon Dioxide 28.8 Anion Gap 7 BUN 7 Creatinine 0.91 Estimated GFR Greater than 89 Random Glucose 80 Calcium 8.7 Total Bilirubin 0.4 AST 12 L ALT 17 Alkaline Phosphatase 141 H Total Protein 8.3 H Albumin 3.7 Urine Color Urine Clarity Urine pH Ur Specific [place] Urine Protein Urine Glucose (UA) Urine Ketones Urine Occult Blood Urine Nitrate Urine Bilirubin Urine Urobilinogen Ur Leukocyte Esterase Urine RBC Urine WBC Calcium Oxalate Crystal Urine Mucus Micro UA Comment Ur Microscopic Review Urine Culture Comments Urine Opiates Screen Ur Barbiturates Screen Ur Amphetamines Screen U Benzodiazepines Scrn Urine Cocaine Screen U Cannabinoids Screen Chlam trachomat DNA PCR N.gonorrhoeae DNA (PCR) Microbiology 10/05/18 16:21 Clean Catch Urine Urine Culture - Preliminary No growth in 24 hours Assessment and Plan - Assessment (1) Paraphimosis Code(s): N47.2 - Paraphimosis Status: Acute - Plan 28 y/o male with no medical history presented to the ed for evaluation of penile pain and swelling that began yesterday. Paraphimosis, acute -Consult to urology for evaluation -plan to manual reduction under anesthesia today -Pain management with IV morphine and PO [place] -NPO Gonorrhea, acute -Patient treated in ED with Azithromycin and Rocephin -Discussed with patient importance of letting former partner know -Will need follow up testing outpatient DVT prophylaxis: SCDs
--- NOTE | 2018-10-06 12:50 | P.DS ---
Date of admission: 10/05/18 19:12 Primary care physician: No Primary Care Physician Attending physician on discharge: Yousuf Diaz Anticipated date of discharge: 10/06/18 Brief History from admission: 28 y/o male with no medical history presented to the ed for evaluation of penile pain and swelling that began yesterday. Patient states he retracted his foreskin to urinate and it never went back. He states over the last day it began to get more painful and swollen. He states the pain is throbbing, 6/10, no radiation, worse with touch and associated clear/yellow drainage noted. Patient states he had unprotected sex 4 months ago. He denies any dysuria, fever , chills, abdominal pain, urinary frequency, chest pain or sob. DS: Diagnosis - Discharge Diagnosis (1) Paraphimosis Status: Acute (2) Acute gonorrhea of genitourinary tract Status: Acute DS: Summary Hospital Course: 28 y/o male with no medical history presented to the ed for evaluation of penile pain and swelling that began yesterday. Found to have acute paraphimosis by urology who completed manual reduction under anesthesia. Incidental finding of Gonorrhea treated in ED with Azithromycin and Rocephin. Discussed with patient importance of letting former partner know; Will need follow up testing outpatient - Time Spent with Patient Total time spent providing and/or coordinating discharge services: Less than 30 minutes - Quality: VTE Deep Vein Thrombosis/Pulmonary Embolism Present on Admission: No Exam Vital signs: Vital Signs 10/05/18 15:40 10/05/18 17:54 10/05/18 19:15 Temperature 98.3 F Pulse Rate 92 H 83 Respiratory Rate 18 20 16 Blood Pressure 140/93 H 134/68 Pulse Oximetry 100 99 10/06/18 04:00 10/06/18 08:00 10/06/18 12:00 Temperature 99.7 F H 98.3 F 97.6 F Pulse Rate 81 59 L 73 Respiratory Rate 18 16 20 Blood Pressure 122/73 103/69 125/79 Pulse Oximetry 97 98 96 10/06/18 12:15 10/06/18 12:30 Temperature 97.7 F Pulse Rate 64 65 Respiratory Rate 18 18 Blood Pressure 135/89 135/96 H Pulse Oximetry 100 98 Intake & Output 10/05/18 10/06/18 10/06/18 18:59 06:59 18:59 Intake Total 100 / 100 Balance 100 / 100 Weight 70.307 kg 70.307 kg Intake: IV 100 / 100 Rocephin Inj 1,000 MG In NS Inj 100 / 100 100 ML @ 200 mls/hr IV.SIG ONCE ONE Rx#:[id number] Other: # Voids 1 Date of Last Bowel Movement 10/05/18 Weight On Admission 70.307 kg Narrative: GENERAL: Well nourished patient laying in bed, no distress SKIN: Warm and dry. HEAD: Normocephalic. CARDIOVASCULAR: Regular rate and rhythm without murmurs, gallops, or rubs. RESPIRATORY: Breath sounds equal bilaterally. No accessory muscle use. GASTROINTESTINAL: Abdomen soft, non-tender, nondistended. MUSCULOSKELETAL: No cyanosis, or edema. Results Procedures completed during hospitalization: Reduction of paraphimosis done 10/06/2018 Labs on day of discharge: Labs from last 24 hours 10/05/18 10/05/18 10/05/18 17:28 17:28 17:28 WBC 11.5 H RBC 4.32 L Hgb 12.3 L Hct 36.8 L MCV 85.3 MCH 28.4 MCHC 33.3 RDW 14.7 Plt Count 367 MPV 7.0 Prelim Diff (Auto) Slide review pending Neut % (Auto) 75.9 H Lymph % (Auto) 13.1 [place] % (Auto) 8.7 H Eos % (Auto) 0.9 Baso % (Auto) 1.4 Neut # (Auto) 8.7 H Lymph # (Auto) 1.5 [place] # (Auto) 1.0 H Eos # (Auto) 0.1 Baso # (Auto) 0.2 WBC Differential . Diff Scan Auto diff confirmed Differential Comment . PT 10.5 INR 1.0 APTT 35.3 H Sodium 139 Potassium 3.8 Chloride 103 Carbon Dioxide 28.8 Anion Gap 7 BUN 7 Creatinine 0.91 Estimated GFR Greater than 89 Random Glucose 80 Calcium 8.7 Total Bilirubin 0.4 AST 12 L ALT 17 Alkaline Phosphatase 141 H Total Protein 8.3 H Albumin 3.7 Urine Color Urine Clarity Urine pH Ur Specific [place] Urine Protein Urine Glucose (UA) Urine Ketones Urine Occult Blood Urine Nitrate Urine Bilirubin Urine Urobilinogen Ur Leukocyte Esterase Urine RBC Urine WBC Calcium Oxalate Crystal Urine Mucus Micro UA Comment Ur Microscopic Review Urine Culture Comments Urine Opiates Screen Ur Barbiturates Screen Ur Amphetamines Screen U Benzodiazepines Scrn Urine Cocaine Screen U Cannabinoids Screen Chlam trachomat DNA PCR N.gonorrhoeae DNA (PCR) 10/05/18 10/05/18 10/05/18 16:21 16:21 16:21 WBC RBC Hgb Hct MCV MCH MCHC RDW Plt Count MPV Prelim Diff (Auto) Neut % (Auto) Lymph % (Auto) [place] % (Auto) Eos % (Auto) Baso % (Auto) Neut # (Auto) Lymph # (Auto) [place] # (Auto) Eos # (Auto) Baso # (Auto) WBC Differential Diff Scan Differential Comment PT INR APTT Sodium Potassium Chloride Carbon Dioxide Anion Gap BUN Creatinine Estimated GFR Random Glucose Calcium Total Bilirubin AST ALT Alkaline Phosphatase Total Protein Albumin Urine Color Yellow Urine Clarity Hazy H Urine pH 6.0 Ur Specific [place] 1.019 Urine Protein Negative Urine Glucose (UA) Negative Urine Ketones Negative Urine Occult Blood Negative Urine Nitrate Negative Urine Bilirubin Negative Urine Urobilinogen 2.0 H Ur Leukocyte Esterase Moderate H Urine RBC 1 Urine WBC 121 H Calcium Oxalate Crystal Rare H Urine Mucus Few H Micro UA Comment Culture indicated Ur Microscopic Review Not Reportable Urine Culture Comments Culture indicated Urine Opiates Screen Neg Ur Barbiturates Screen Neg Ur Amphetamines Screen Neg U Benzodiazepines Scrn Neg Urine Cocaine Screen Neg U Cannabinoids Screen Pos H Chlam trachomat DNA PCR Not detected N.gonorrhoeae DNA (PCR) Detected A Preliminary micro results at discharge 10/05/18 16:21 Urine Culture - Preliminary Clean Catch Urine No growth in 24 hours Discharge Plan - Discharge Disposition Patient Disposition: 01 Discharge Home - Discharge Condition Condition: Good - Discharge Order Discharge Orders: Discharge Order (Routine); Ordered 10/06/18 Ordered By: Renetta Bui - Discharge Details Discharge Comment: OK to discharge from PACU - Physicians Team Primary Care Provider: Primary Care Demarco,Rachel Attending Provider: Yousuf Diaz Other Providers: Wade Gaona MD
[2018-10-06 15:23] VITALS: BP 121/76; PULSE 66; RESP 17; TEMP 98.2; O2SAT 99
== END 2018-10-06 16:10 | disposition home or self-care (01) ==
LOC: NEPD 15:32 → NEDA 15:32 → NEPGCP 20:02 → N06 10-06 10:42
PROVIDERS: ADMIT Family Medicine; ATTEND Family Medicine